=== PATIENT | female | born 1980 | race African-American/Black ===

== ENCOUNTER 2018-06-19 12:37 | Day surgery (SDC) | payer OTHER ==
[~2018-06-19 12:37] MED LIST: LIDOCAINE 1% PF 2 ML VIAL. ID; LIDOCAINE 2% PF Vial for OR 5 ML VIAL.; MIDAZOLAM HCL/PF 2 MG/2 ML VIAL.; ONDANSETRON PF 4 MG/2 ML VIAL. IV; PROPOFOL 20 ML IV; fentaNYL PF VIAL 100 MCG/2 ML VIAL; fentaNYL PF VIAL 100 MCG/2 ML VIAL IV
[2018-06-19] MEDS: IV RINGERS,LACTATED 1000ML 1,000 ML IV (13:20)
[2018-06-19 13:30] LABS: NEG OBC UR NEG; POS OBC UR POS; U PREG PATIENT NEGATIVE (NEG)
[2018-06-19] MEDS: CLINDAMYCIN 900MG PREMIX 50 ML IV (14:17)
[2018-06-19] MEDS ORDERED: DEXAMETHASONE SOD PHOS 20 MG/5 ML VIAL. (14:21)
[2018-06-19] MEDS ORDERED: ONDANSETRON PF 4 MG/2 ML VIAL. (14:21)
[2018-06-19] MEDS: EPINEPHrine VIAL 30 MG/30 ML VIAL (14:43)
[2018-06-19] MEDS: BUPIVACAINE-EPI 0.25%-1:200000 50 ML VIAL. (14:43)
[2018-06-19] MEDS ORDERED: KETOROLAC 30 MG/ML INJ FOR OR. INJ (14:56)
[2018-06-19] MEDS: fentaNYL PF VIAL 100 MCG/2 ML VIAL IV ×4 (15:26→15:52)
[2018-06-19] MEDS: MORPHINE SULFATE 2 MG/ML DISP.SYRIN. IV ×4 (15:40→16:46)
[2018-06-19] MEDS: PROCHLORPERAZINE 10 MG/2 ML VIAL. IV (15:49)
[2018-06-19] MEDS ORDERED: MORPHINE SULFATE 2 MG/ML DISP.SYRIN. (16:41)
[2018-06-19] MEDS: HYDROcodone/APAP 7.5/325MG 1 TAB TABLET PO ×2 (16:50→16:52)
== END 2018-06-19 17:25 | disposition home or self-care (01) ==
LOC: SURG 12:37
DX: S83.241A Other tear of medial meniscus, current injury, right knee, initial encounter (principal); S83.281A Other tear of lateral meniscus, current injury, right knee, initial encounter; E28.2 Polycystic ovarian syndrome; I10 Essential (primary) hypertension; J45.909 Unspecified asthma, uncomplicated; K21.9 Gastro-esophageal reflux disease without esophagitis; F32.9 Major depressive disorder, single episode, unspecified; Z98.890 Other specified postprocedural states; K08.409 Partial loss of teeth, unspecified cause, unspecified class; Z72.89 Other problems related to lifestyle; Z83.3 Family history of diabetes mellitus; Z82.49 Family history of ischemic heart disease and other diseases of the circulatory system; Z80.0 Family history of malignant neoplasm of digestive organs; Z80.1 Family history of malignant neoplasm of trachea, bronchus and lung; Z79.899 Other long term (current) drug therapy; Z88.8 Allergy status to other drugs, medicaments and biological substances; Z91.010 Allergy to peanuts; G47.30 Sleep apnea, unspecified; E66.9 Obesity, unspecified; X58.XXXA Exposure to other specified factors, initial encounter; Y93.89 Activity, other specified; Y92.89 Other specified places as the place of occurrence of the external cause; Y99.8 Other external cause status
CPT/HCPCS: 29880; 81025; A7015; J0171; J0780; J1100; J1885; J2001; J2250; J2270; J2405; J2704; J3010; J3490

== ENCOUNTER → 2019-01-07 | Day surgery (SDC) | payer BC ==
[~2019-01-07] MED LIST changes: +HYDR-2761 PO; +HYDR-2765 PO; +IV RINGERS,LACTATED 1000ML 1,000 ML IV SCH; -LIDOCAINE 1% PF 2 ML VIAL. ID; -LIDOCAINE 2% PF Vial for OR 5 ML VIAL.; -MIDAZOLAM HCL/PF 2 MG/2 ML VIAL.; -ONDANSETRON PF 4 MG/2 ML VIAL. IV; -PROPOFOL 20 ML IV; +PROPOFOL 60 ML IV ONE; -fentaNYL PF VIAL 100 MCG/2 ML VIAL; -fentaNYL PF VIAL 100 MCG/2 ML VIAL IV
[2019-01-07 10:36] LABS: U PREG PATIENT NEGATIVE (NEG)
[2019-01-07 12:07] VITALS: BP 172/81
== END | disposition home or self-care (01) ==
LOC: ENDOS 09:02
PROVIDERS: ATTEND Internal Medicine Gastroenterology
DX: Z12.11 Encounter for screening for malignant neoplasm of colon (principal); K64.0 First degree hemorrhoids; I10 Essential (primary) hypertension; G47.33 Obstructive sleep apnea (adult) (pediatric); J45.909 Unspecified asthma, uncomplicated; K21.9 Gastro-esophageal reflux disease without esophagitis; F41.9 Anxiety disorder, unspecified; F32.9 Major depressive disorder, single episode, unspecified; M19.90 Unspecified osteoarthritis, unspecified site; E66.9 Obesity, unspecified; Z68.43 Body mass index [BMI] 50.0-59.9, adult; Z88.1 Allergy status to other antibiotic agents; Z91.010 Allergy to peanuts; Z98.890 Other specified postprocedural states; Z82.49 Family history of ischemic heart disease and other diseases of the circulatory system; Z83.3 Family history of diabetes mellitus; Z72.89 Other problems related to lifestyle; Z87.891 Personal history of nicotine dependence
CPT/HCPCS: 45378; 81025; J2704